=== PATIENT | female | born 1985 | race Two or more races ===

== ENCOUNTER 2022-06-19 14:15 | Inpatient (IN) | payer OTHER ==
[~2022-06-19] VITALS: Ht 175.3 cm; Wt 95.3 kg
[2022-07-03] MEDS ORDERED: FAMOTIDINE20 MG (15:50)
== END 2022-07-04 19:09 | DRG 807 ==
LOC: OB/GYN 06-28 14:15 → LDR 07-02 06:30 → OB/GYN 07-02 06:30
PROVIDERS: ADMIT Obstetrics & Gynecology; ATTEND Obstetrics & Gynecology
PROC: 10E0XZZ Delivery of Products of Conception, External Approach (ICD-10-PCS; principal; 2022-07-02)
PROC: 0UQG7ZZ Repair Vagina, Via Natural or Artificial Opening (ICD-10-PCS; 2022-07-02)
PROC: 4A1HXCZ Monitoring of Products of Conception, Cardiac Rate, External Approach (ICD-10-PCS; 2022-07-02)
DX: O71.4 Obstetric high vaginal laceration alone (principal); Z37.0 Single live birth; O99.824 Streptococcus B carrier state complicating childbirth; Z3A.40 40 weeks gestation of pregnancy; Z20.822 Contact with and (suspected) exposure to COVID-19

== ENCOUNTER 2022-06-20 10:51 | Outpatient (CLI) | payer OTHER | END 2022-06-20 12:04 | disposition home or self-care (01) | LOC: NST 10:51 | PROVIDERS: ATTEND Obstetrics & Gynecology Gynecology | DX: Z34.83 Encounter for supervision of other normal pregnancy, third trimester (principal) ==

== ENCOUNTER 2022-06-30 09:19 | Outpatient (CLI) | payer OTHER | END 2022-06-30 10:12 | disposition home or self-care (01) | LOC: NST 09:19 | PROVIDERS: ATTEND Obstetrics & Gynecology | DX: Z34.83 Encounter for supervision of other normal pregnancy, third trimester (principal) ==

== ENCOUNTER 2022-07-26 15:22 | Inpatient (IN) | payer OTHER ==
[~2022-07-26] VITALS: Ht 175.3 cm; Wt 79.8 kg
[~2022-07-26 15:22] MED LIST: FAMOTIDINE20 MG
== END 2022-07-28 15:34 | disposition designated cancer center or children's hospital (05) | DRG 755 ==
LOC: OB/GYN 15:22
PROVIDERS: ADMIT Obstetrics & Gynecology Gynecology; ATTEND Obstetrics & Gynecology Gynecology
PROC: B030Y0Z Magnetic Resonance Imaging (MRI) of Brain using Other Contrast, Unenhanced and Enhanced (ICD-10-PCS; principal; 2022-07-26)
PROC: BB24ZZZ Computerized Tomography (CT Scan) of Bilateral Lungs (ICD-10-PCS; 2022-07-26)
DX: C58 Malignant neoplasm of placenta (principal); C78.01 Secondary malignant neoplasm of right lung; C78.7 Secondary malignant neoplasm of liver and intrahepatic bile duct; C79.31 Secondary malignant neoplasm of brain; C78.02 Secondary malignant neoplasm of left lung
CPT/HCPCS: 70552